=== PATIENT | female | born 1990 | race Hispanic/Latino ===

== ENCOUNTER 2021-11-26 23:17 | Emergency (ER) | payer BC ==
[~2021-11-26] VITALS: Ht 144.8 cm; Wt 55.3 kg
[2021-11-26 23:55] LABS: BASOPHILS % (AUTO) 0.4 % (0.0-5.0); EOSINOPHILS % (AUTO) 1.7 % (0.0-8.0); HEMATOCRIT 41.4 % (36-48); LYMPHOCYTES % (AUTO) 7.1 % (21.0-51.0); MEAN CORPUSCULAR HEMOGLOBIN 28.5 pg (27.0-33.0); MEAN CORPUSCULAR HGB CONC 33.3 g/dL (32.0-36.0); MEAN CORPUSCULAR VOLUME 85.4 fL (79-99); MONOCYTES % (AUTO) 8.6 % (3.0-13.0); NEUTROPHILS % (AUTO) 81.9 % (40.0-77.0); PLATELET COUNT (AUTO) 248 K/uL (130-400); RED BLOOD CELL COUNT(AUTO) 4.85 MIL/uL (4.00-5.50); RED CELL DISTRIBUTION WIDTH 12.7 % (11.0-15.5); WHITE BLOOD COUNT (AUTO) 9.3 K/uL (4.8-10.8)
[2021-11-27] MEDS ORDERED: LACTATED RINGERS 1000ML 1,000 ML IV ONE
[2021-11-27 00:20] LABS: ALBUMIN 3.6 g/dL (3.5-5.0); CREATININE 0.6 mg/dL (0.5-1.5); POTASSIUM 3.5 mmol/L (3.5-5.1); TOTAL PROTEIN, SERUM 7.3 g/dL (6.0-8.3)
[2021-11-27] MEDS ORDERED: ACETAMINOPHEN 500 MG TABLET ONE (00:31)
[2021-11-27] MEDS ORDERED: ONDANSETRON 4MG INJ ONE (00:34)
[2021-11-27] MEDS ORDERED: 0.9%NACL 1000ML 1,000 ML IV ONE ×2 (01:00)
[2021-11-27] MEDS ORDERED: KETOROLAC 30MG VIAL (30MG/ML) IVP ONE (01:00)
[2021-11-27] MEDS ORDERED: FAMOTIDINE 20MG VIAL IV ONE ×2 (01:00→01:08)
[2021-11-27] MEDS ORDERED: KETOROLAC 30MG VIAL (30MG/ML) ONE (01:08)
[2021-11-27] MEDS ORDERED: ACETAMINOPHEN 500 MG TABLET PO ONE (01:30)
[2021-11-27] MEDS ORDERED: ONDANSETRON 4MG INJ IVP ONE (01:30)
[2021-11-27 02:09] LABS: APPEARANCE,URINE CLEAR (CLEAR); BILIRUBIN,URINE NEGATIVE (NEGATIVE); COLOR,URINE YELLOW (YELLOW); GLUCOSE, URINE (UA) NEGATIVE (NEGATIVE); KETONES,URINE 40 mg/dL (NEGATIVE); LEUKOCYTE ESTERASE ,URINE NEGATIVE (NEGATIVE); NITRATE,URINE NEGATIVE (NEGATIVE); OCCULT BLOOD,URINE TRACE-INTACT (NEGATIVE); PROTEIN,URINE NEGATIVE (NEGATIVE); UROBILINOGEN,URINE 0.2 mg/dL (0.2-1.0)
[2021-11-27 02:17] LABS: BACTERIA,URINE None Seen /HPF (None Seen); MUCUS,URINE Rare LPF (None Seen); RBC,URINE 0-1 /HPF (0-1); SQUAMOUS EPITHELIAL CELL,UR Few /HPF (0-2); WBC,URINE None Seen /HPF (0-1)
[2021-11-27 02:19] VITALS: BP 109/62
[2021-11-27] MEDS ORDERED: ONDA4TAB10 PO (03:10)
[2021-11-27] MEDS ORDERED: IBUP-2070 PO (03:10)
[2021-11-27] MEDS ORDERED: FAMO-136 PO (03:10)
[2021-11-27] MEDS ORDERED: BENZ-39 PO (03:10)
== END 2021-11-27 03:28 | disposition home or self-care (01) ==
LOC: EDH 23:17
DX: B34.9 Viral infection, unspecified (principal); E86.0 Dehydration; Z20.822 Contact with and (suspected) exposure to COVID-19; Z79.1 Long term (current) use of non-steroidal anti-inflammatories (NSAID)
CPT/HCPCS: 99284; 87635; 82550; 80053; 84703; 83690; 85025; 87804 ×2; 81001; 36415; 96374; 71045; 96375; 96361; C9803; J7120; J3490; J7030; J2405; J1885

== ENCOUNTER 2022-05-25 23:10 | Emergency (ER) | payer BC, OTHER ==
[~2022-05-25] VITALS: Ht 147.3 cm; Wt 56.7 kg
[~2022-05-25 23:10] MED LIST: BENZ-39 PO; FAMO-136 PO; IBUP-2070 PO; ONDA4TAB10 PO
[2022-05-25 23:14] VITALS: BP 113/69
[2022-05-26] MEDS ORDERED: GUAI1TBM19 PO (00:26)
[2022-05-26] MEDS ORDERED: PRED20TA3 PO (00:26)
[2022-05-26] MEDS ORDERED: IBUP-1493 PO (00:26)
== END 2022-05-26 00:55 | disposition home or self-care (01) ==
LOC: EDH 23:10
DX: B34.9 Viral infection, unspecified (principal); Z20.822 Contact with and (suspected) exposure to COVID-19; Z79.899 Other long term (current) drug therapy; Z98.890 Other specified postprocedural states
CPT/HCPCS: 99283; 87635; 87880; 87804 ×2; C9803

== ENCOUNTER 2023-02-24 11:59 | Emergency (ER) | payer OTHER ==
[~2023-02-24] VITALS: Ht 144.8 cm; Wt 59.4 kg
[~2023-02-24 11:59] MED LIST changes: +GUAI1TBM19 PO; +IBUP-1493 PO; +PRED20TA3 PO
[2023-02-24 12:40] LABS: SARS-CoV-2, RNA, NAAT NEGATIVE SARS CoV-2 (NEGATIVE)
[2023-02-24 12:47] LABS: INFLUENZA TYPE A Negative For Type A (NEGATIVE); INFLUENZA TYPE B Negative For Type B (NEGATIVE)
[2023-02-24 13:38] LABS: APPEARANCE,URINE CLOUDY (CLEAR); BILIRUBIN,URINE NEGATIVE (NEGATIVE); COLOR,URINE YELLOW (YELLOW); GLUCOSE, URINE (UA) NEGATIVE (NEGATIVE); HCG,QUALITATIVE URINE NEGATIVE (NEGATIVE); KETONES,URINE 10 mg/dL (NEGATIVE); LEUKOCYTE ESTERASE ,URINE NEGATIVE Leu/uL (NEGATIVE); NITRATE,URINE NEGATIVE (NEGATIVE); OCCULT BLOOD,URINE SMALL (NEGATIVE); PH,URINE 5.5 (5.0-8.0); PROTEIN,URINE 30 mg/dL (NEGATIVE); UROBILINOGEN,URINE 0.2 mg/dL (0.2-1.0)
[2023-02-24 13:42] LABS: ADD UA MICROSCOPIC YES
[2023-02-24 13:44] LABS: BACTERIA,URINE FEW /HPF (None Seen); MUCUS,URINE MANY LPF (None Seen); SQUAMOUS EPITHELIAL CELL,UR MANY /HPF (0-2)
[2023-02-24] MEDS ORDERED: FLUT16H NASAL (14:03)
[2023-02-24] MEDS ORDERED: BENZ200C53 PO (14:03)
[2023-02-24] MEDS ORDERED: GUAI400T94 PO (14:03)
[2023-02-24 14:10] VITALS: BP 121/70; PULSE 96; RESP 18; O2SAT 97
== END 2023-02-24 14:00 | disposition home or self-care (01) ==
LOC: EDH 11:59
DX: J00 Acute nasopharyngitis [common cold] (principal); Z20.822 Contact with and (suspected) exposure to COVID-19; Z79.899 Other long term (current) drug therapy; Z98.890 Other specified postprocedural states
CPT/HCPCS: 99284; 71045; 87635; 87804 ×2; 81001; 81025; C9803

== ENCOUNTER 2023-02-25 17:33 | Emergency (ER) | payer OTHER ==
[~2023-02-25] VITALS: Ht 144.8 cm; Wt 14.1 kg
[~2023-02-25 17:33] MED LIST changes: +BENZ200C53 PO; +FLUT16H NASAL; +GUAI400T94 PO
[2023-02-25 18:01] VITALS: BP 110/62; PULSE 110; RESP 18
[2023-02-25 18:47] LABS: BASOPHILS # (AUTO) 0.03 K/uL (0.00-0.20); BASOPHILS % (AUTO) 0.3 % (0.0-5.0); EOSINOPHILS # (AUTO) 0.19 K/uL (0.00-0.70); EOSINOPHILS % (AUTO) 2.1 % (0.0-8.0); HEMATOCRIT 42.1 % (36-48); IMMATURE GRANULOCYTE ABSOLUTE 0.03 K/uL (0-1); LYMPHOCYTES # (AUTO) 1.8 K/uL (1.0-4.8); LYMPHOCYTES % (AUTO) 19.1 % (21.0-51.0); MEAN CORPUSCULAR HEMOGLOBIN 28.6 pg (27.0-33.0); MEAN CORPUSCULAR HGB CONC 32.8 g/dL (32.0-36.0); MEAN CORPUSCULAR VOLUME 87.2 fL (79-99); MONOCYTES # (AUTO) 0.9 K/uL (0.1-1.0); MONOCYTES % (AUTO) 9.2 % (3.0-13.0); NEUTROPHILS # (AUTO) 6.4 K/uL (1.8-7.7); PLATELET COUNT (AUTO) 238 K/uL (130-400); RED BLOOD CELL COUNT(AUTO) 4.83 MIL/uL (4.00-5.50); RED CELL DISTRIBUTION WIDTH 12.5 % (11.0-15.5); WHITE BLOOD COUNT (AUTO) 9.3 K/uL (4.8-10.8)
[2023-02-25 18:51] LABS: CREATININE 0.6 mg/dL (0.5-1.5); POTASSIUM 3.4 mmol/L (3.5-5.1)
[2023-02-25 18:56] LABS: ALBUMIN 3.6 g/dL (3.5-5.0); BILIRUBIN,TOTAL 0.3 mg/dL (0.2-1.0); TOTAL PROTEIN, SERUM 7.6 g/dL (6.0-8.3)
[2023-02-25 21:01] LABS: SARS-CoV-2, RNA, NAAT NEGATIVE SARS CoV-2 (NEGATIVE)
[2023-02-25 21:06] LABS: INFLUENZA TYPE A Negative For Type A (NEGATIVE); INFLUENZA TYPE B Negative For Type B (NEGATIVE)
[2023-02-25 22:17] LABS: HCG,QUALITATIVE URINE NEGATIVE (NEGATIVE)
[2023-02-25 22:22] LABS: ADD UA MICROSCOPIC YES; APPEARANCE,URINE CLEAR (CLEAR); BILIRUBIN,URINE 1 mg/dL (NEGATIVE); COLOR,URINE YELLOW (YELLOW); GLUCOSE, URINE (UA) NEGATIVE (NEGATIVE); KETONES,URINE 150 mg/dL (NEGATIVE); LEUKOCYTE ESTERASE ,URINE NEGATIVE Leu/uL (NEGATIVE); NITRATE,URINE NEGATIVE (NEGATIVE); OCCULT BLOOD,URINE SMALL (NEGATIVE); PH,URINE 5.5 (5.0-8.0); PROTEIN,URINE 50 mg/dL (NEGATIVE); UROBILINOGEN,URINE 6 mg/dL (0.2-1.0)
[2023-02-25 22:51] LABS: RBC,URINE 0-1 /HPF (0-1); SQUAMOUS EPITHELIAL CELL,UR RARE /HPF (0-2)
[2023-02-26] MEDS ORDERED: CYCL-309 PO (02:22)
[2023-02-26] MEDS ORDERED: IBUP-1493 PO (02:22)
[2023-02-26] MEDS ORDERED: GABAPENTIN 300 MG CAPSULE PO SCH (02:30)
[2023-02-26] MEDS ORDERED: CYCLOBENZAPRINE HCL 10 MG TABLET PO ONE (02:30)
[2023-02-26] MEDS ORDERED: IBUPROFEN 800 MG TAB PO ONE (02:30)
== END 2023-02-26 02:57 | disposition home or self-care (01) ==
LOC: EDH 17:33
DX: G44.209 Tension-type headache, unspecified, not intractable (principal); M79.18 Myalgia, other site; Z20.822 Contact with and (suspected) exposure to COVID-19; Z79.899 Other long term (current) drug therapy; Z98.890 Other specified postprocedural states
CPT/HCPCS: 99284; 71045; 87635; 80053; 85025; 87804 ×2; 81001; 81025; 36415; C9803

== ENCOUNTER 2024-04-09 07:33 | Emergency (ER) | payer BC, MEDICAID ==
[~2024-04-09] VITALS: Ht 147.3 cm; Wt 61.2 kg
[~2024-04-09 07:33] MED LIST changes: -BENZ-39 PO; +CYCL-309 PO; -FAMO-136 PO; -IBUP-2070 PO; -ONDA4TAB10 PO; -PRED20TA3 PO
[2024-04-09 07:55] LABS: BASOPHILS # (AUTO) 0.03 K/uL (0.00-0.20); BASOPHILS % (AUTO) 0.5 % (0.0-5.0); EOSINOPHILS # (AUTO) 0.09 K/uL (0.00-0.70); EOSINOPHILS % (AUTO) 1.5 % (0.0-8.0); IMMATURE GRANULOCYTE ABSOLUTE 0.01 K/uL (0-1); LYMPHOCYTES % (AUTO) 16.6 % (21.0-51.0); MEAN CORPUSCULAR HEMOGLOBIN 28.4 pg (27.0-33.0); MEAN CORPUSCULAR HGB CONC 33.1 g/dL (32.0-36.0); MEAN CORPUSCULAR VOLUME 85.8 fL (79-99); MONOCYTES # (AUTO) 0.5 K/uL (0.1-1.0); MONOCYTES % (AUTO) 8.6 % (3.0-13.0); NEUTROPHILS # (AUTO) 4.3 K/uL (1.8-7.7); NEUTROPHILS % (AUTO) 72.6 % (40.0-77.0); PLATELET COUNT (AUTO) 193 K/uL (130-400); RED BLOOD CELL COUNT(AUTO) 4.08 MIL/uL (4.00-5.50); RED CELL DISTRIBUTION WIDTH 12.7 % (11.0-15.5); WHITE BLOOD COUNT (AUTO) 5.9 K/uL (4.8-10.8)
[2024-04-09 08:13] LABS: ALBUMIN 2.7 g/dL (3.5-5.0); BILIRUBIN,DIRECT 0.1 mg/dL (0.0-0.3); BILIRUBIN,TOTAL 0.1 mg/dL (0.2-1.0); CREATININE 0.7 mg/dL (0.5-1.0); POTASSIUM 4.1 mmol/L (3.5-5.1); TOTAL PROTEIN, SERUM 5.5 g/dL (6.0-8.3)
[2024-04-09 08:22] LABS: APPEARANCE,URINE CLEAR (CLEAR); BILIRUBIN,URINE NEGATIVE (NEGATIVE); COLOR,URINE LIGHT-YELLOW (YELLOW); GLUCOSE, URINE (UA) NEGATIVE (NEGATIVE); KETONES,URINE NEGATIVE (NEGATIVE); LEUKOCYTE ESTERASE ,URINE NEGATIVE Leu/uL (NEGATIVE); NITRATE,URINE NEGATIVE (NEGATIVE); OCCULT BLOOD,URINE NEGATIVE (NEGATIVE); PROTEIN,URINE NEGATIVE (NEGATIVE); UROBILINOGEN,URINE 0.2 mg/dL (0.2-1.0)
[2024-04-09 08:23] LABS: HCG,QUALITATIVE URINE NEGATIVE (NEGATIVE)
[2024-04-09 08:24] LABS: ADD UA MICROSCOPIC NO
[2024-04-09] MEDS: ondanSETRON 4MG INJ IVP ONE (08:31)
[2024-04-09] MEDS: 0.9%NACL 1000ML 1,000 ML IV ONE (08:32)
[2024-04-09] MEDS: ketOROlac 15MG/ML VIAL (15MG/ML) IV ONE (08:32)
--- NOTE | 2024-04-09 08:37 | EKG ---
[facility] Test Date: 2024-04-09 Test Time: 08:34:46 Pat Name: TEGAN BRADY Department: ED Room: Gender: F Reimbursement Counselor: Guero NEWTON : 1990 Requested By: SALMA DIGGS Order Number: [id number] Reading MD: Hay Willams Measurements Intervals [place] Rate: 98 P: 26 [place]: 115 QRS: 7 QRSD: 73 T: 25 QT: 354 QTc: 453 Interpretive Statements Sinus rhythm No previous ECG available for comparison Electronically Signed On 04-09-2024 21:25:09 WOODWORKER by Hay Willams Please click the below link to view image of tracing.
--- NOTE | 2024-04-09 09:08 | HMCIMG ---
CHEST 1VW REASON: cp COMPARISON: 02/25/2023 FINDINGS: Single view of the chest was obtained. Lungs are clear. Heart size is normal. There is no pulmonary vascular congestion. Mediastinum and bony thorax appear unremarkable. IMPRESSION: 1. Normal single view chest x-ray.
--- NOTE | 2024-04-09 09:21 | ERN ---
ED Note History of Present Illness Stated Complaint: ABD PAIN Chief Complaint: Abdominal Pain Time Seen by MD: 07:38 Dictation: 33-year-old female presents to the ED for evaluation of abdominal pain onset 30 minutes prior to arrival. Patient reports vomiting x1and chest pain, but denies any diarrhea, constipation, chest pain or any other associated symptoms at this time. Patient states she is experiencing epigastric pain that radiates to her chest and also mentioned she is currently on her menstrual cycle. Allergies: Coded Allergies: No Known Allergies (Unverified Allergy, Unknown, 11/26/21) Home Meds Active Scripts Ondansetron (Ondansetron Odt) 4 Mg Tab.rapdis, 1 TAB PO [id number] PRN for nausea/vomiting for 5 Days, #10 TAB 0 Refills Prov:SALMA DIGGS MD 04/09/24 Ibuprofen (Motrin/Advil) 800 Mg Tab, 800 MG PO TID, #30 TAB Prov:ELÍAS VARGAS MD 02/26/23 Cyclobenzaprine HCl (Cyclobenzaprine HCl) 10 Mg Tablet, 10 MG PO TIDP PRN for PAIN, #30 TAB Prov:ELÍAS VARGAS MD 02/26/23 Fluticasone Propionate (Flonase Nasal [place]) 50 Mcg/Actuation [place], 50 MCG NASAL DAILY PRN for NASAL CONGESTION for 10 Days, #1 SPRAY Prov:JAOSN DIEGO 02/24/23 Guaifenesin (Guaifenesin) 400 Mg Tablet, 400 MG PO Q4HPRN PRN for COUGH, #30 TAB Prov:JASON DIEGO 02/24/23 Benzonatate (Benzonatate) 200 Mg Capsule, 200 MG PO TID PRN for COUGH for 14 Days, #42 CAP Prov:JASON DIEGO 02/24/23 Guaifenesin/Dextromethorphan (Mucinex Dm ER 1,200-60 mg Tab) 1 Each Tbmp.12hr, 1 EACH PO BID, #20 TAB Prov:ELÍAS VARGAS MD 05/26/22 Past Medical History Past Medical History: No Pertinent History Surgical History: Other, BTL Surgical History Other: D/C Family History: Negative Social History: Negative, Lives with family LMP: Apr 08, 2024 Review of System Dictation Constitutional: Negative for fever,chills, and weight loss Eyes: Negative for injury, pain,redness, and discharge ENT: Negative for injury,pain or swelling Cardiovascular: Negative for chest pain, palpitations, and edema Respiratory: Negative for shortness of breath, cough, and wheezing, Abdomen/GI: Positive for abdominal pain, vomiting negative for diarrhea, and constipation Back: Negative for injury and pain : Negative for injury, bleeding and discharge MS/Extremity: Negative for injury and deformity Skin: Negative for rash, and discoloration Neuro: Negative for headache, weakness, numbness, tingling, and seizure Psych: Negative for suicide ideation, homicidal ideation, and hallucinations Initial Vital Sign VS Vital Signs Date Time Temp Pulse Resp B/P (MAP) Pulse Ox O2 Delivery O2 Flow Rate FiO2 04/09/24 07:35 97.5 93 17 106/61 100 0 04/09/24 07:46 Room Air* 21 Physical Exam Dictation General: awake, alert, NAD Head/Face: Normocephalic, atraumatic Eyes: PERRL, EOMI, vision at baseline ENT: oral cavity clear, TMs clear, no signs of infection Neck: Trachea midline, supple, no nuchal rigidity Cardiovascular: RRR, normal S1/S2, No MRGs, no JVD Respiratory: CTAB, no respiratory distress, No rales or wheezes Abdomen: Soft, epigastric tenderness, non-distended, normal bowel sounds, no guarding or rebound. Skin: Warm, dry, normal turgor, no rash MS/Extremity: Pulses equal, no cyanosis, neurovascular intact, FROM Neuro: COAx4, GCS 15, strength 5/5, CN 2-12 intact, normal cerebellar exam, normal gait, Psych: Normal behavior, mood, and affect normal Results (Laboratory/Radiology) Laboratory/Radiology Laboratory Tests Test 04/09/24 07:48 04/09/24 07:51 White Blood Count 5.9 K/uL (4.8-10.8) Red Blood Count 4.08 MIL/uL (4.00-5.50) Hemoglobin 11.6 g/dL (12.0-16.0) L Hematocrit 35.0 % (36-48) L Mean Corpuscular Volume 85.8 fL (79-99) Mean Corpuscular Hemoglobin 28.4 pg (27.0-33.0) Mean Corpuscular Hemoglobin Concent 33.1 g/dL (32.0-36.0) Red Cell Distribution Width 12.7 % (11.0-15.5) Platelet Count 193 K/uL (130-400) Mean Platelet Volume 11.2 fL (7.5-10.5) H Immature Granulocyte % (Auto) 0.2 % (0-1) Neutrophils (%) (Auto) 72.6 % (40.0-77.0) Lymphocytes (%) (Auto) 16.6 % (21.0-51.0) L Monocytes (%) (Auto) 8.6 % (3.0-13.0) Eosinophils (%) (Auto) 1.5 % (0.0-8.0) Basophils (%) (Auto) 0.5 % (0.0-5.0) Neutrophils # (Auto) 4.3 K/uL (1.8-7.7) Lymphocytes # (Auto) 1.0 K/uL (1.0-4.8) Monocytes # (Auto) 0.5 K/uL (0.1-1.0) Eosinophils # (Auto) 0.09 K/uL (0.00-0.70) Basophils # (Auto) 0.03 K/uL (0.00-0.20) Absolute Immature Granulocyte (auto 0.01 K/uL (0-1) Nucleated Red Blood Cells 0.0 % (0.0-0.19) Sodium Level 144 mmol/L (136-145) Potassium Level 4.1 mmol/L (3.5-5.1) Chloride Level 111 mmol/L (101-111) Carbon Dioxide Level 26 mmol/L (21-32) Blood Urea Nitrogen 8 mg/dL (7-18) Creatinine 0.7 mg/dL (0.5-1.0) Glomerular Filtration Rate Calc 116 mL/min (>90) Random Glucose 119 mg/dL (70-105) H Total Calcium 7.5 mg/dL (8.5-10.1) L Total Bilirubin 0.1 mg/dL (0.2-1.0) L Direct Bilirubin 0.1 mg/dL (0.0-0.3) Aspartate Amino Transf (AST/SGOT) 48 U/L (10-37) H Alanine Aminotransferase (ALT/SGPT) 46 U/L (12-78) Alkaline Phosphatase 64 U/L (50-136) Troponin I High Sensitivity < 4 ng/L (4-50) L Total Protein 5.5 g/dL (6.0-8.3) L Albumin 2.7 g/dL (3.5-5.0) L Lipase 38 U/L (16-77) Urine Color LIGHT-YELLOW (YELLOW) Urine Appearance CLEAR (CLEAR) Urine pH 7.0 (5.0-8.0) Urine Specific [place] 1.019 (1.001-1.031) Urine Protein NEGATIVE mg/dL (NEGATIVE) Urine Glucose (UA) NEGATIVE mg/dL (NEGATIVE) Urine Ketones NEGATIVE mg/dL (NEGATIVE) Urine Occult Blood NEGATIVE (NEGATIVE) Urine Nitrate NEGATIVE (NEGATIVE) Urine Bilirubin NEGATIVE mg/dL (NEGATIVE) Urine Urobilinogen 0.2 mg/dL (0.2-1.0) Urine Leukocyte Esterase NEGATIVE [place]/uL Urine HCG, Qualitative NEGATIVE (NEGATIVE) Labs Reviewed?: Yes EKG Comment: EKG 04/09/2024 time 8:34 a.m. ventricular rate 98, MT 115, QRS D 73, QT 354. Sinus rhythm. No STEMI ED Course ED Course Orders Procedure Category Date Status Time Basic Metabolic Panel LAB 04/09/24 Complete 07:39 Cbc With Differential LAB 04/09/24 Complete 07:39 Hepatic Function Panel LAB 04/09/24 Complete 07:39 ,Urine Test LAB 04/09/24 Complete 07:39 Lipase LAB 04/09/24 Complete 07:39 Urinalysis Profile LAB 04/09/24 Complete 07:39 Troponin I High LAB 04/09/24 Complete Sensitivity 08:14 Chest 1vw RAD 04/09/24 Resulted 08:14 12 Lead Ekg Tracing- EKG 04/09/24 Complete Technical 08:14 Ketorolac PHA 04/09/24 Complete Tromethamine 15mg/Ml 08:30 Ondansetron 4mg Inj PHA 04/09/24 Complete (Zofran 4mg Inj) 08:30 0.9%Nacl 1000ml (Ns PHA 04/09/24 Complete 1000ml) 08:30 Current Medications Medications (Trade) Dose Ordered Sig/Jania Route PRN Reason Start Time Stop Time Status Last Admin Dose Admin Ketorolac Tromethamine (toRADol) 15 mg ONCE ONCE IV 04/09/24 08:30 04/09/24 08:31 DC 04/09/24 08:32 Ondansetron HCl (zoFRAN 4MG INJ) 4 mg ONCE ONCE IVP 04/09/24 08:30 04/09/24 08:31 DC 04/09/24 08:31 Sodium Chloride 1,000 ml @ 0 mls/hr ONCE ONCE IV 04/09/24 08:30 04/09/24 08:31 DC 04/09/24 08:32 Vital Signs Date Time Temp Pulse Resp B/P (MAP) Pulse Ox O2 Delivery O2 Flow Rate FiO2 04/09/24 07:46 94 18 110/71 100 Room Air* 0 21 04/09/24 07:35 97.5 93 17 106/61 100 0 HEART Score Response (Comments) Value History: Low suspicion (0) 0 EKG: Normal 0 Age: < 45yrs (0) 0 Risk Factors: No known risk factors (0) 0 Initial Troponin: Normal limit (0) 0 HEART Score Risk: Low Risk for MACE (1-3) Total 0 Medical Decision Making MDM MDM: Differential diagnosis: Abdominal pain, vomiting, chest pain Previous outside records reviewed: Old ER visits. Need for hospitalization: Patient does not meet criteria for hospitalization. Need for emergency major/minor surgery: No Patient's prior external medical records from other ER visits were reviewed by me as indicated. Prior testing and results from previous visits were reviewed. Prior tests were taken into account with medical decision making and resource utilization, independent historian/historians were used to obtain complete medical history. I independently interpreted the test that were performed, results were reviewed by me and considered findings on radiology if ordered. Medical management and examination interpretation discussions were had by me with other qualified healthcare professionals as indicated for the patient's care. DX & DISP Disposition: Discharge Departure Impression: Primary Impression: Vomiting Additional Impression: Chest pain Condition: Stable Scripts Ondansetron (Ondansetron Odt) 4 Mg Tab.rapdis 1 TAB PO [id number] PRN for nausea/vomiting for 5 Days, #10 TAB 0 Refills Prov: SALMA DIGGS MD 04/09/24 Referrals: SELF,REFERRAL (PCP) I have reviewed, & agreed with my scribe's, documentation. (Entered by Rabia Lee, acting as a scribe for Dr. Diggs) I personally scribed for SALMA DIGGS MD ([email or web address]) on 04/09/24 at 09:21. Electronically submitted by Rabia Lee ([email or web address]). SALMA DIGGS MD Apr 09, 2024 09:21
[2024-04-09] MEDS ORDERED: ONDA-243 PO (10:36)
[2024-04-09 11:14] VITALS: BP 103/69; PULSE 70; RESP 18; TEMP 97.5; O2SAT 99
--- NOTE | 2024-04-09 11:20 | NUR ---
DEPARTED AT THIS TIME. UNABLE TO DISCHARGE PATIENT DUE TO LOCKED ACCOUNT BY ANOTHER USER
== END 2024-04-09 11:20 | disposition home or self-care (01) ==
LOC: EDH 07:33
DX: R07.89 Other chest pain (principal); Z79.1 Long term (current) use of non-steroidal anti-inflammatories (NSAID); Z98.51 Tubal ligation status
CPT/HCPCS: 99284; 96374; 71045; 96361; 96375; 80076; 84484; 80048; 83690; 85025; 81003; 81025; 36415; 93005; J7030; J2405; J1885